=== PATIENT | female | born 1995 ===

== ENCOUNTER 2019-04-23 09:19 | Outpatient (CLI) | payer OTHER ==
[~2019-04-23 09:19] MED LIST: PERCOCET 5/3251 TAB PO; SURFAK240 M1 PO
== END 2019-04-23 09:25 | disposition home or self-care (01) ==
LOC: LAB 09:19
DX: J11.1 Influenza due to unidentified influenza virus with other respiratory manifestations (principal); R05 Cough

== ENCOUNTER 2019-11-16 13:12 | Outpatient (CLI) | payer OTHER | END 2019-11-16 13:14 | disposition home or self-care (01) | LOC: PPH VACUNA 13:12 → LAB 11-17 13:11 | DX: Z23 Encounter for immunization (principal) ==

== ENCOUNTER 2020-05-28 17:21 | Emergency (ER) | payer OTHER ==
[~2020-05-28] VITALS: Ht 149.9 cm; Wt 47.6 kg
== END 2020-05-28 22:32 | disposition home or self-care (01) ==
LOC: ER 17:21
DX: N39.0 Urinary tract infection, site not specified (principal); R31.29 Other microscopic hematuria; R10.31 Right lower quadrant pain

== ENCOUNTER 2020-11-29 08:00 | Outpatient (CLI) | payer OTHER | END 2020-11-29 08:30 | disposition home or self-care (01) | LOC: PPH VACUNA 08:00 | PROVIDERS: ATTEND Emergency Medicine Pediatric Emergency Medicine | DX: Z23 Encounter for immunization (principal) ==

== ENCOUNTER 2020-12-15 07:24 | Emergency (ER) | payer OTHER ==
[~2020-12-15] VITALS: Ht 149.9 cm; Wt 47.6 kg
== END 2020-12-15 16:46 | disposition home or self-care (01) ==
LOC: ER 07:24
DX: K52.89 Other specified noninfective gastroenteritis and colitis (principal)

== ENCOUNTER 2021-11-21 08:00 | Outpatient (CLI) | payer OTHER | END 2021-11-21 08:30 | disposition home or self-care (01) | LOC: PPH VACUNA 08:00 | PROVIDERS: ATTEND Emergency Medicine Pediatric Emergency Medicine | DX: Z23 Encounter for immunization (principal) ==

== ENCOUNTER 2021-12-15 08:30 | Outpatient (CLI) | payer OTHER | END 2021-12-15 09:13 | disposition home or self-care (01) | LOC: LAB 08:30 | PROVIDERS: ATTEND Pediatrics | DX: Z20.822 Contact with and (suspected) exposure to COVID-19 (principal); J10.1 Influenza due to other identified influenza virus with other respiratory manifestations; A49.3 Mycoplasma infection, unspecified site ==